=== PATIENT | male | born 1995 | race Asian ===

== ENCOUNTER 2016-06-06 03:44 | Emergency (ER) | payer OTHER ==
[~2016-06-06] VITALS: Ht 170.2 cm; Wt 52.0 kg
[2016-06-06 03:48] VITALS: TEMP 36.4; Ht 170.2 cm; Wt 52.0 kg
[2016-06-06 04:41] LABS: BASO % 0.1 %; BASO ABS # 0.01 K/uL (0-0.2); COMPLETE YES; HEMATOCRIT 42.5 % (42-52); IG% 0.4 %; LYMPH % 5.3 %; LYMPH ABS # 1.02 K/uL (1.2-3.4); MEAN CELL VOLUME 84.3 fL (80-100); MEAN CORPUSCULAR HEMOGLOBIN 30.2 pg (25-34); MEAN CORPUSCULAR HGB CONC 35.8 g/dl (32-36); MEAN PLATELET VOLUME 8.9 fL (7.4-10.4); MONO % 2.9 %; NEUT % 91.3 %; PLATELET COUNT 332 K/uL (130-400); RED BLOOD COUNT 5.04 M/uL (4.7-6.1); WHITE BLOOD COUNT 19.15 K/uL (4.8-10.8)
[2016-06-06] MEDS ORDERED: SODIUM CHLORIDE 0.9% 1000ML 1,000 ML IV STA ×2 (04:54)
[2016-06-06 04:57] LABS: BUN/CREATININE RATIO 13.3 (10-20); CALCIUM 8.9 mg/dl (8.5-10.1); POTASSIUM 3.4 mmol/L (3.5-5.1)
[2016-06-06 05:00] LABS: ALB/GLOB RATIO 1.1 (0.9-2)
[2016-06-06] MEDS ORDERED: OPTIRAY 320 IV PRN (05:15)
[2016-06-06] MEDS ORDERED: MoRPHine SULFATE 2 MG/ML CARP IV STA ×2 (05:24→07:28)
--- NOTE | 2016-06-06 06:50 | EMERGENCY ROOM VISIT NOTE ---
History First contact with patient: 04:30 Chief Complaint: ABDOMINAL PAIN Stated Complaint: ABD PAIN Nursing Triage Summary: pt c/o mid upper abd pain, but denies any n/v/d/c History of Present Illness The patient is a 21 year old male who presents to the Emergency Room with complaints of mid abdominal pain that began suddenly approximately one hour ago. The patient states that he woke up in the middle of the night with the pain. It has been constant and severe. He rates his discomfort a 6/10. He states it is worse with movement or when laying down flat. He denies any nausea , vomiting, urinary symptoms or changes in bowel movements. He denies any chest pain or shortness of breath. He denies any history of abdominal surgery. Review of Systems A complete 10-point Review of Systems was discussed with the patient, with pertinent positives and negatives listed in the History of Present Illness. All remaining Review of Systems questions can be considered negative unless otherwise specified. Social History Smoking Status: Never Smoker Current/Historical Medications No Active Prescriptions or Reported Meds Allergies Coded Allergies: No Known Allergies (Unverified , 06/06/16) Physical Exam Vital Signs Date Time Temp Pulse Resp B/P Pulse Ox O2 Delivery O2 Flow Rate FiO2 06/06/16 07:27 74 16 120/73 97 Room Air 06/06/16 06:30 84 18 114/69 97 Room Air 06/06/16 05:27 77 18 113/63 97 06/06/16 03:48 36.4 94 18 78/48 98 Room Air Physical Exam VITALS: Vitals are noted on the nurse's note and reviewed by myself. Vital signs stable. GENERAL: This is a 21-year-old male, in no acute distress, nondiaphoretic, well- developed well-nourished. SKIN: Capillary reflex less than 2 seconds. HEENT: Normocephalic. PERRLA. EOMI. Nares patent. Mucous membranes moist. Neck is supple without nuchal rigidity. HEART: Regular rate and rhythm without murmurs gallops or rubs. LUNGS: Clear to auscultation bilaterally without wheezes, rales or rhonchi. No retractions or accessory muscle use. ABDOMEN: Positive bowel sounds x 4. Moderate tenderness of the epigastric region with mild guarding. No rebound tenderness. NEURO: Patient was alert and oriented to person place and time. Medical Decision & Procedures ER Provider Diagnostic Interpretation: CHEST ONE VIEW PORTABLE FINDINGS: The cardiac and mediastinal contours are normal. There is no evidence of focal pulmonary consolidation. There is no evidence of failure. No pleural effusions are visualized.[ There is no free intraperitoneal air IMPRESSION: No active disease in the chest. CT ABD/PELVIS IV AND ORAL CONT FINDINGS: Lower chest: The heart is normal in size and configuration, without pericardial effusion. The lung bases and pleural spaces are clear. Liver: There is minimal periportal edema, this is a nonspecific finding which can be seen in aggressive hydration. Gallbladder: Unremarkable. Spleen: Normal in size and attenuation. Pancreas: Unremarkable. Adrenal glands: Unremarkable. Kidneys: There is symmetric renal cortical enhancement. The kidneys are normal in size without hydronephrosis. Bowel: The visualized portions of the appendix appears normal. There is no evidence of acute diverticulitis. There is mild fecal retention. Despite the administration of oral contrast, there is a limited bowel opacification. There is a borderline dilated distal small bowel loops containing fecal material. No discrete transition zone visualized. The findings are consistent with either an enteritis or small bowel stasis. Peritoneum: There is no intraperitoneal free air or abdominal ascites. Vasculature: The abdominal aorta is normal in course and caliber. Adenopathy: There are enlarged right lower quadrant ileocolic lymph nodes, likely reactive. Pelvic viscera: The bladder, and pelvic viscera are unremarkable. Skeletal structures: No destructive osseous lesions are seen. IMPRESSION: 1. No evidence of bowel obstruction. No evidence of free air 2. Normal appendix 3. Mild ileocolic adenopathy, likely reactive 4. Prominent distal small bowel loops containing fecal material. The findings are suggestive of either an enteritis or small bowel stasis. Clinical correlation and follow-up is recommended. Laboratory Results 06/06/16 04:31 Red Blood Count 5.04, Mean Corpuscular Volume 84.3, Mean Corpuscular Hemoglobin 30.2, Mean Corpuscular Hemoglobin Concent 35.8, Mean Platelet Volume 8.9, Neutrophils (%) (Auto) 91.3, Lymphocytes (%) (Auto) 5.3, Monocytes (%) (Auto) 2.9, Eosinophils (%) (Auto) 0.0, Basophils (%) (Auto) 0.1, Neutrophils # (Auto) 17.49, Lymphocytes # (Auto) 1.02, Monocytes # (Auto) 0.55, Eosinophils # (Auto) 0.00, Basophils # (Auto) 0.01 06/06/16 04:31 Test 06/06/16 04:31 06/06/16 06:56 White Blood Count 19.15 K/uL (4.8-10.8) Red Blood Count 5.04 M/uL (4.7-6.1) Hemoglobin 15.2 g/dL (14.0-18.0) Hematocrit 42.5 % (42-52) Mean Corpuscular Volume 84.3 fL (80-100) Mean Corpuscular Hemoglobin 30.2 pg (25-34) Mean Corpuscular Hemoglobin Concent 35.8 g/dl (32-36) Platelet Count 332 K/uL (130-400) Mean Platelet Volume 8.9 fL (7.4-10.4) Neutrophils (%) (Auto) 91.3 % Lymphocytes (%) (Auto) 5.3 % Monocytes (%) (Auto) 2.9 % Eosinophils (%) (Auto) 0.0 % Basophils (%) (Auto) 0.1 % Neutrophils # (Auto) 17.49 K/uL (1.4-6.5) Lymphocytes # (Auto) 1.02 K/uL (1.2-3.4) Monocytes # (Auto) 0.55 K/uL (0.11-0.59) Eosinophils # (Auto) 0.00 K/uL (0-0.5) Basophils # (Auto) 0.01 K/uL (0-0.2) RDW Standard Deviation 36.1 fL (36.4-46.3) RDW Coefficient of Variation 11.8 % (11.5-14.5) Immature Granulocyte % (Auto) 0.4 % Immature Granulocyte # (Auto) 0.08 K/uL (0.00-0.02) Anion Gap 9.0 mmol/L (3-11) Est Creatinine Clear Calc Drug Dose 85.9 ml/min Estimated GFR () 124.1 Estimated GFR (Non- 107.1 BUN/Creatinine Ratio 13.3 (10-20) Calcium Level 8.9 mg/dl (8.5-10.1) Total Bilirubin 0.8 mg/dl (0.2-1) Aspartate Amino Transf (AST/SGOT) 13 U/L (15-37) Alanine Aminotransferase (ALT/SGPT) 19 U/L (12-78) Alkaline Phosphatase 95 U/L (45-117) Total Protein 8.3 gm/dl (6.4-8.2) Albumin 4.3 gm/dl (3.4-5.0) Globulin 4.0 gm/dl (2.5-4.0) Albumin/Globulin Ratio 1.1 (0.9-2) Lipase 163 U/L (73-393) Urine Color YELLOW Urine Appearance CLEAR (CLEAR) Urine pH 5.5 (4.5-7.5) Urine Specific [place] 1.033 (1.000-1.030) Urine Protein NEG (NEG) Urine Glucose (UA) NEG (NEG) Urine Ketones 3+ (NEG) Urine Occult Blood NEG (NEG) Urine Nitrite NEG (NEG) Urine Bilirubin NEG (NEG) Urine Urobilinogen NEG (NEG) Urine Leukocyte Esterase NEG (NEG) Medications Administered Medications (Trade) Dose Ordered Sig/Yanni Route Start Time Stop Time Status Last Admin Dose Admin Sodium Chloride 1,000 ml @ 999 mls/hr Q1H1M STAT IV 06/06/16 04:54 06/06/16 05:54 DC 06/06/16 04:54 999 MLS/HR Sodium Chloride (Nss 1000ml) 1,000 ml @ 999 mls/hr Q1H1M STAT IV 06/06/16 04:54 06/06/16 05:54 DC 06/06/16 04:54 999 MLS/HR Morphine Sulfate (MoRPHine SULFATE INJ) 2 mg NOW STAT IV 06/06/16 05:24 06/06/16 05:25 DC 06/06/16 05:28 2 MG Morphine Sulfate (MoRPHine SULFATE INJ) 2 mg NOW STAT IV 06/06/16 07:28 06/06/16 07:29 DC 06/06/16 07:38 2 MG Al Hydroxide/Mg Hydroxide (Maalox Susp) 30 ml STK-MED ONCE .ROUTE 06/06/16 08:02 06/06/16 08:03 DC 06/06/16 07:58 30 ML Lidocaine HCl (Viscous Lidocaine 2% Soln) 20 ml STK-MED ONCE .ROUTE 06/06/16 08:02 06/06/16 08:03 DC 4/22/17 07:59 20 ML ED Course The patient was evaluated as above. Labs were drawn and IV access was obtained. Patient was medicated with 1 L normal saline solution and 2 mg morphine. Patient reported continued pain and was given an additional [address] scan was performed and read by radiology as above. Patient was reevaluated and felt better. He was well-appearing and felt ready for discharge home. Findings were discussed. Discharge instructions were reviewed with the patient. The patient verbalized understanding of my assessment and treatment plan and was discharged home in good condition. Medical Decision Differential diagnosis includes appendicitis, cholecystitis, gastroenteritis, colitis, bowel obstruction, among others. The patient is a 21-year-old male who presents today complaining of abdominal pain. Labs revealed a leukocytosis of 19,000. No concerning anemia or electrolyte abnormalities. Urinalysis was not suggestive of infection. Due to the patient's white count and mild guarding, I did choose to perform a CT scan of the abdomen and pelvis. CT was read by radiology and showed a possible enteritis versus small bowel stasis. I feel the symptoms are likely secondary to enteritis. The patient felt much better after IV hydration and pain medication. Conservative measures were discussed and he will follow-up with [facility] this week, but is aware that he should return if he has worsening of his current condition. The patient's case was reviewed with Dr. Montenegro, ED attending physician, who agreed with my assessment and treatment plan. Based on the patient's presentation and work up, I feel the patient is stable for outpatient treatment. The patient was educated to the emergency department for any worsening of their current condition or new/concerning symptoms. He will follow up with [facility] this week. Impression Primary Impression: Enteritis Departure Information Dispostion Home / Self-Care Condition GOOD Prescriptions No Active Prescriptions or Reported Meds Referrals No Doctor, Assigned (PCP) Patient Instructions [facility] Additional Instructions You have been treated in the Emergency Department your Abdominal Pain. Laboratory results and imaging studies have ruled out any emergent causes for your abdominal pain which would warrant admission or surgery. For pain control, you can use the following [id number] medicines (if >12 yo): - Regular strength (325mg/tab) Tylenol (acetaminophen) 2 tabs every 4-6 hours as needed. Do not exceed 12 tablets in a 24 hour period. Avoid taking more than 4 grams (4000 mg) of Tylenol per day. This includes any other sources of acetaminophen you may take on a regular basis. - Regular strength (200 mg/tab) Advil (ibuprofen) 1-2 tabs every 4-6 hours as needed. Do not exceed a dose of 3200 mg per day. Drink plenty of water and stay well hydrated. Follow-up with [facility] Wednesday. Return to the emergency department if you have worsening pain, severe vomiting, or any other new/concerning symptoms.
[2016-06-06 07:09] LABS: URINE APPEARANCE CLEAR (CLEAR); URINE BILIRUBIN NEG (NEG); URINE COLOR YELLOW; URINE NITRITE NEG (NEG); URINE PH 5.5 (4.5-7.5); URINE SPECIFIC GRAVITY 1.033 (1.000-1.030); UROBILINOGEN NEG (NEG); ZZUR CULT IF INDIC CLEAN CATCH NO
[2016-06-06 07:14] LABS: MANUAL MICROSCOPIC REQUIRED? NO; REVIEW REQ? NO
[2016-06-06 07:27] VITALS: BP 120/73; PULSE 74; O2SAT 97
--- NOTE | 2016-06-06 07:38 | DIAGNOSTIC IMAGING REPORT ---
CT ABD/PELVIS IV AND ORAL CONT CLINICAL HISTORY: Periumbilical abdominal pain and guarding. COMPARISON STUDY: None. TECHNIQUE: Following the IV administration of 91 mL of Optiray-320, CT scan of the abdomen and pelvis was performed from the lung bases to the proximal femurs. Images are reviewed in the axial, sagittal, and coronal planes. IV contrast was administered without complication. CT DOSE: 276.32 mGy.cm FINDINGS: Lower chest: The heart is normal in size and configuration, without pericardial effusion. The lung bases and pleural spaces are clear. Liver: There is minimal periportal edema, this is a nonspecific finding which can be seen in aggressive hydration. Gallbladder: Unremarkable. Spleen: Normal in size and attenuation. Pancreas: Unremarkable. Adrenal glands: Unremarkable. Kidneys: There is symmetric renal cortical enhancement. The kidneys are normal in size without hydronephrosis. Bowel: The visualized portions of the appendix appears normal. There is no evidence of acute diverticulitis. There is mild fecal retention. Despite the administration of oral contrast, there is a limited bowel opacification. There is a borderline dilated distal small bowel loops containing fecal material. No discrete transition zone visualized. The findings are consistent with either an enteritis or small bowel stasis. Peritoneum: There is no intraperitoneal free air or abdominal ascites. Vasculature: The abdominal aorta is normal in course and caliber. Adenopathy: There are enlarged right lower quadrant ileocolic lymph nodes, likely reactive. Pelvic viscera: The bladder, and pelvic viscera are unremarkable. Skeletal structures: No destructive osseous lesions are seen. IMPRESSION: 1. No evidence of bowel obstruction. No evidence of free air 2. Normal appendix 3. Mild ileocolic adenopathy, likely reactive 4. Prominent distal small bowel loops containing fecal material. The findings are suggestive of either an enteritis or small bowel stasis. Clinical correlation and follow-up is recommended. Electronically signed by: Rashad Dorado M.D. 06/06/2016 7:24 AM Dictated Date/Time: 06/06/2016 7:17 AM
--- NOTE | 2016-06-06 07:41 | DIAGNOSTIC IMAGING REPORT ---
CHEST ONE VIEW PORTABLE CLINICAL HISTORY: Pain, radiating to the epigastrium COMPARISON STUDY: No previous studies for comparison. FINDINGS: The cardiac and mediastinal contours are normal. There is no evidence of focal pulmonary consolidation. There is no evidence of failure. No pleural effusions are visualized.[ There is no free intraperitoneal air IMPRESSION: No active disease in the chest. Electronically signed by: Rashad Dorado M.D. 06/06/2016 7:39 AM Dictated Date/Time: 06/06/2016 7:39 AM
[2016-06-06] MEDS ORDERED: GI COCKTAIL PO STA (07:53)
[2016-06-06] MEDS ORDERED: ALUMINUM/MAGNESIUM SUSP 30 ML UDC ONE (08:02)
[2016-06-06] MEDS ORDERED: LIDOCAINE HCL 2% VISC SOLN 20 ML UDC ONE (08:02)
== END 2016-06-06 07:50 | disposition home or self-care (01) ==
LOC: C.EDB 03:46 → C.EDA 07:50
DX: K52.9 Noninfective gastroenteritis and colitis, unspecified (principal)